=== PATIENT | female | born 1995 | race Caucasian/White ===

== ENCOUNTER 2022-12-03 17:45 | Emergency (ER) | payer BC ==
[~2022-12-03] VITALS: Ht 172.7 cm; Wt 68.0 kg
[2022-12-03] MEDS: ONDANSETRON HCL/PF 4 MG/2 ML VIAL IVP ONE (18:00)
[2022-12-03] MEDS: IV NS 0.9% 1,000 ML BAG IV ONE ×2 (18:00→21:00)
--- NOTE | 2022-12-03 18:27 | NUR ---
PT COMES FROM [facility]. BP IS LOW AND IMPROVING WITH NS FLUIDS. PT STATES TAHT SHE THINK SHE IS HAVING A UTI DUE TO PAIN DURING URINATION AND FLANK PAIN WHICH HAS BEEN BOTHERING HER FOR SEVERAL DAYS.
[2022-12-03] MEDS ORDERED: ONDANSETRON HCL/PF 4 MG/2 ML VIAL ONE ×2 (18:29→20:24)
[2022-12-03] MEDS ORDERED: KETOROLAC TROMETHAMINE 15 MG/ML VIAL ONE (18:29)
[2022-12-03 18:36] LABS: BASOPHILS % (AUTO) 0.2 % (0.0-2.0); EOSINOPHILS % (AUTO) 0.1 % (0.0-6.0); HEMATOCRIT 33 % (33-45); HEMOGLOBIN 10.2 g/dL (11.5-14.8); LYMPHOCYTES % (AUTO) 1.9 % (20.0-44.0); MEAN CORPUSCULAR HGB CONC 31 g/dl (31.0-36.0); MEAN CORPUSCULAR VOLUME 79 fL (82-100); MONOCYTES % (AUTO) 2.7 % (2.0-12.0); NEUTROPHILS % (AUTO) 95.1 % (43.0-81.0); PLATELET COUNT (AUTO) 194 K/uL (150-450); RED BLOOD CELL COUNT(AUTO) 4.15 MIL/uL (4.0-5.2); WHITE BLOOD COUNT (AUTO) 13.1 K/uL (4.3-11.0)
[2022-12-03 18:37] LABS: LYMPHOCYTES # (AUTO) 0.2 K/uL (0.8-4.8); MONOCYTES # (AUTO) 0.4 K/uL (0.1-1.30); NEUTROPHILS # (AUTO) 12.5 K/uL (1.8-8.9)
[2022-12-03 18:55] LABS: ALBUMIN 3.3 g/dL (3.4-5.0); BILIRUBIN,DIRECT 0.1 mg/dL (0.0-0.2); BILIRUBIN,TOTAL 0.8 mg/dL (0.2-1.0); CALCIUM, SERUM 8.7 mg/dL (8.5-10.1); CREATININE 0.9 mg/dL (0.6-1.3); TOTAL PROTEIN, SERUM 6.9 g/dL (6.4-8.2)
[2022-12-03 19:00] LABS: POTASSIUM 2.7 mmol/L (3.5-5.1)
[2022-12-03] MEDS: KETOROLAC TROMETHAMINE INJ 30 MG/ML VIAL IV ONE (19:02)
--- NOTE | 2022-12-03 20:14 | NUR ---
urine sample collected and sent to lab.
[2022-12-03] MEDS ORDERED: POTASSIUM CHLORIDE 20 MEQ TAB.PRT.SR PO ONE (20:26)
[2022-12-03 20:45] LABS: BILIRUBIN,URINE NEGATIVE (NEGATIVE); COLOR,URINE YELLOW (YELLOW); LEUKOCYTE ESTERASE ,URINE 2+ (NEGATIVE); NITRITE, URINE POSITIVE (NEGATIVE); PROTEIN,URINE NEGATIVE (NEGATIVE); UGLUCOSE NEGATIVE (NEGATIVE); UROBILINOGEN,URINE 0.2 EU/dL (0.2)
[2022-12-03] MEDS: POTASSIUM CHLORIDE 20 MEQ TAB.PRT.SR PO ONE (20:52)
[2022-12-03 21:05] LABS: BACTERIA,URINE 4+ /HPF (None Seen); RBC,URINE 0-2 /HPF (0-2)
[2022-12-03] MEDS ORDERED: LEVOFLOXACIN (500MG) 500 MG TABLET ONE (21:53)
[2022-12-03] MEDS: LEVOFLOXACIN (250MG) 250 MG TABLET PO ONE (21:57)
[2022-12-03] MEDS ORDERED: IBUP-1953 PO (22:34)
[2022-12-03] MEDS ORDERED: LEVO750T46 PO (22:34)
[2022-12-03] MEDS ORDERED: POTA10TA PO (22:35)
--- NOTE | 2022-12-03 22:57 | NUR ---
IV removed. Catheter intact and site benign. Pressure and 4x4 applied to site. No bleeding noted.Patient discharged to home in stable condition. Written and verbal after care instructions given. Patient verbalizes understanding of instruction.
[2022-12-03 23:03] VITALS: BP 92/65; TEMP 98.6
== END 2022-12-03 23:04 | disposition home or self-care (01) ==
LOC: ER 17:50
DX: N12 Tubulo-interstitial nephritis, not specified as acute or chronic (principal); E86.0 Dehydration; Z88.2 Allergy status to sulfonamides; Z88.1 Allergy status to other antibiotic agents
CPT/HCPCS: 99285; 74176; 96374; 96361; 96375; 93005; 85025; 80048; 87086; 83690; 80076; 84703; 81001; 36415; J2405 ×2; J7030 ×2; J1885